=== PATIENT | female | born 1970 | race African-American/Black ===

== ENCOUNTER 2017-03-11 16:22 | Emergency (ER) | payer OTHER ==
[~2017-03-11] VITALS: Ht 167.6 cm; Wt 75.9 kg
[2017-03-11] MEDS ORDERED: METH10TA PO (16:32)
[2017-03-11 17:39] LABS: MUCUS, URINE RFX LARGE (NEGATIVE); SPECIFIC GRAVITY UR AUTO RFX 1.027 (1.002-1.035); SQUAM EPITHELIAL CELL UR AURFX 1 /HPF (0-6)
--- NOTE | 2017-03-11 19:00 | REPUSA ---
CLINICAL HISTORY: Pelvic pain with history of fibroids. TECHNIQUE: Realtime sonographic images were obtained in multiple projections. COMMENTS: The uterus is retroverted measuring 8.2 x 5.4 x 6.8 cm. The endometrial echo pattern is within melanie l limits measuring 7.7 mm. There are numerous fibroids with the largest laterally measuring 2.7 x 2.1 x 2.4 cm. There is free fluid in the left adnexa. The right ovary measures 3.2 x 2.4 x 1.8 cm and the left ovary measures 3.8 x 2.4 x 3.6 cm with a hem orrhagic cyst measuring 2.4 x 2.1 x 2.6 cm. There is no evidence for abnormal vascularity. The bladder measures 2.2 x 1.7 x 5.0 cm. IMPRESSION: 1. Numerous fibroids. 2. Left ovarian hemorrhagic cyst. 3. Left adnexal free fluid. Thank you for your kind referral of this patient. We appreciate the opportunity to participate in thi s patient's care.
[2017-03-11 19:31] VITALS: BP 114/67
== END 2017-03-11 19:49 | disposition home or self-care (01) ==
LOC: M ED 16:22
DX: D25.9 Leiomyoma of uterus, unspecified (principal); N83.202 Unspecified ovarian cyst, left side; Z87.440 Personal history of urinary (tract) infections; Z79.899 Other long term (current) drug therapy; Z88.8 Allergy status to other drugs, medicaments and biological substances

== ENCOUNTER 2017-04-12 09:35 | Emergency (ER) | payer OTHER ==
[2017-04-12 12:43] LABS: BASO % 0.7 % (0.0-1.0); EOS # 0.2 10^3/uL (0.0-0.50); EOS % 3.4 % (0.0-3.0); HEMATOCRIT 40.8 % (36.0-47.0); HEMOGLOBIN 13.9 g/dl (12.0-16.0); IMMATURE GRANULOCYTE % 0.2 % (0-0); LYMPH # 1.9 10^3/uL (1.5-4.5); LYMPH % 34.2 % (24.0-44.0); MEAN CORPUSCULAR HEMOGLOBIN 29.4 pg (27.0-33.0); MEAN CORPUSCULAR HGB CONC 34.1 g/dl (32.0-36.5); MEAN CORPUSCULAR VOLUME 86.3 fl (80.0-96.0); MONO # 0.3 10^3/uL (0.0-0.8); MONO % 4.4 % (0.0-5.0); NEUTROPHILS # 3.2 10^3/uL (1.8-7.7); NEUTROPHILS % 57.1 % (36.0-66.0); PLATELET COUNT, AUTOMATED 325 10^3/uL (150-450); RED BLOOD COUNT 4.73 10^6/uL (4.00-5.40); RED CELL DISTRIBUTION WIDTH 13.1 % (11.5-14.5); WHITE BLOOD COUNT 5.6 10^3/uL (4.0-10.0)
[2017-04-12 12:53] LABS: INR 0.95; PROTHROMBIN TIME 12.8 SECONDS (12.4-14.5)
[2017-04-12 12:54] LABS: PARTIAL THROMBOPLASTIN TIME 29.3 SECONDS (26.8-37.9)
[2017-04-12 13:08] LABS: ANION GAP 6 MEQ/L (8-16); BLOOD UREA NITROGEN 10 MG/DL (7-18); CALCIUM LEVEL 8.7 MG/DL (8.5-10.1); CARBON DIOXIDE LEVEL 25 MEQ/L (21-32); CHLORIDE LEVEL 111 MEQ/L (98-107); CREATININE FOR GFR 0.82 MG/DL (0.55-1.02); GLOMERULAR FILTRATION RATE > 60.0 (>58); GLUCOSE, FASTING 127 MG/DL (70-100); MAGNESIUM LEVEL 2.1 MG/DL (1.8-2.4); POTASSIUM SERUM 4.1 MEQ/L (3.5-5.1); SODIUM LEVEL 142 MEQ/L (136-145)
== END 2017-04-12 13:56 | disposition home or self-care (01) ==
LOC: M ED 09:35
DX: M62.838 Other muscle spasm (principal)
CPT/HCPCS: 93971

== ENCOUNTER → 2017-05-20 | Outpatient (REF) | payer OTHER ==
[2017-05-20 21:33] LABS: APPEARANCE, URINE CLEAR (CLEAR); BACTERIA, URINE AUTO NEGATIVE (NEGATIVE); BILIRUBIN, URINE AUTO NEGATIVE (NEGATIVE); BLOOD, URINE BLOOD NEGATIVE (NEGATIVE); COLOR, URINE YELLOW (YELLOW); GLUCOSE, URINE (UA) AUTO NEGATIVE (NEGATIVE); KETONE, URINE AUTO NEGATIVE (NEGATIVE); LEUKOCYTE ESTERASE, URINE AUTO NEGATIVE (NEGATIVE); MUCUS, URINE SMALL (NEGATIVE); NITRITE, URINE AUTO NEGATIVE (NEGATIVE); PROTEIN, URINE AUTO NEGATIVE (NEGATIVE); RBC, URINE AUTO 1 /HPF (0-3); SPECIFIC GRAVITY URINE AUTO 1.026 (1.002-1.035); SQUAMOUS EPITHELIAL CELL UR AU 1 /HPF (0-6); WBC, URINE AUTO 0 /HPF (0-3)
[2017-05-20 23:33] LABS: CHLAMYDIA DNA AMPLIFICATION NEGATIVE (NEGATIVE); GC DNA AMPLIFICATION NEGATIVE (NEGATIVE)
== END ==
LOC: M LAB REF 09:32
DX: N39.0 Urinary tract infection, site not specified (principal)
CPT/HCPCS: 81001

== ENCOUNTER 2017-12-17 09:39 | Emergency (ER) | payer OTHER ==
[2017-12-17 10:18] LABS: BASO # 0.1 10^3/uL (0.0-0.2); BASO % 0.8 % (0.0-1.0); EOS # 0.1 10^3/uL (0.0-0.50); EOS % 1.9 % (0.0-3.0); HEMATOCRIT 41.7 % (36.0-47.0); HEMOGLOBIN 14.1 g/dl (12.0-15.5); IMMATURE GRANULOCYTE % 0.2 % (0-3.0); LYMPH # 2.3 10^3/uL (1.5-4.5); LYMPH % 36.1 % (24.0-44.0); MEAN CORPUSCULAR HEMOGLOBIN 29.1 pg (27.0-33.0); MEAN CORPUSCULAR HGB CONC 33.8 g/dl (32.0-36.5); MONO # 0.5 10^3/uL (0.0-0.8); MONO % 7.3 % (0.0-5.0); NEUTROPHILS # 3.4 10^3/uL (1.8-7.7); NEUTROPHILS % 53.7 % (36.0-66.0); PLATELET COUNT, AUTOMATED 330 10^3/uL (150-450); RED BLOOD COUNT 4.85 10^6/uL (4.00-5.40); RED CELL DISTRIBUTION WIDTH 13.2 % (11.5-14.5); WHITE BLOOD COUNT 6.3 10^3/uL (4.0-10.0)
[2017-12-17 11:01] LABS: CONTROL LINE HCG INT CTR LINE PRESENT; HCG, SERUM QUALITATIVE NEGATIVE (NEGATIVE)
[2017-12-17 11:02] LABS: INR 0.92; PROTHROMBIN TIME 12.5 SECONDS (12.1-14.4)
[2017-12-17 11:05] LABS: D-DIMER QUANT 296.2 ng/ml (<500)
[2017-12-17 11:30] LABS: ALBUMIN 3.5 GM/DL (3.2-5.2); ALBUMIN/GLOBULIN RATIO 1.09 (1.00-1.93); ALKALINE PHOSPHATASE 78 U/L (45-117); ALT/SGPT 16 U/L (12-78); ANION GAP 10 MEQ/L (8-16); AST/SGOT 10 U/L (7-37); BILIRUBIN,DIRECT 0.2 MG/DL (0.0-0.2); BILIRUBIN,TOTAL 0.5 MG/DL (0.2-1.0); BLOOD UREA NITROGEN 10 MG/DL (7-18); CALCIUM LEVEL 8.4 MG/DL (8.5-10.1); CARBON DIOXIDE LEVEL 22 MEQ/L (21-32); CHLORIDE LEVEL 111 MEQ/L (98-107); CK-MB VALUE MASS < 1.0 NG/ML (<3.6); CPK CREATINE PHOSPHOKINASE 55 U/L (26-192); CREATININE FOR GFR 0.84 MG/DL (0.55-1.30); GLOMERULAR FILTRATION RATE > 60.0 (>58); GLUCOSE, FASTING 113 MG/DL (70-100); LIPASE 140 U/L (73-393); MB/CK RELATIVE INDEX 1.82 (< OR =4); NT-PRO BNP 29 PG/ML (<125); POTASSIUM SERUM 3.7 MEQ/L (3.5-5.1); SODIUM LEVEL 143 MEQ/L (136-145); THYROID STIMULATING HORMONE 0.638 uIU/ML (0.358-3.740); TOTAL PROTEIN 6.7 GM/DL (6.4-8.2); TROPONIN I < 0.02 NG/ML (< 0.10)
[2017-12-17] MEDS: ASPIRIN 81 MG CHEW TABLET PO (11:42)
[2017-12-17 13:43] LABS: TROPONIN I < 0.02 NG/ML (< 0.10)
== END 2017-12-17 14:02 | disposition home or self-care (01) ==
LOC: M ED 09:39
DX: F41.9 Anxiety disorder, unspecified (principal); R07.9 Chest pain, unspecified; R00.1 Bradycardia, unspecified; E03.9 Hypothyroidism, unspecified; Z88.8 Allergy status to other drugs, medicaments and biological substances; Z88.1 Allergy status to other antibiotic agents; Z83.2 Family history of diseases of the blood and blood-forming organs and certain disorders involving the immune mechanism; Z98.890 Other specified postprocedural states; Z79.899 Other long term (current) drug therapy
CPT/HCPCS: 71045

== ENCOUNTER → 2018-05-05 | Outpatient (CLI) | payer OTHER ==
[~2018-05-05] MED LIST: METH10TA PO; NAPR-885 PO
--- NOTE | 2018-05-16 17:09 | REP ---
Digital diagnostic bilateral mammography with CAD and focused right breast sonography: History: Right breast lump times 1 week superior and medial quadrant. Status post bilateral lumpectomy. Comparison bilateral mammography November 04, 2016 is retrieved from [facility]. The patient relates that she has a history of breast carcinoma at age 19. Mammographic findings: There is a needle biopsy marker clip projecting in the right lateral mid breast. This is unchanged from the comparison mammography. A skin marker is affixed to the skin at the site of the palpable lump in the right breast. This projects quite medially and inferiorly on the right. Breast parenchyma is heterogeneously somewhat dense in a pattern which may inhibit the sensitivity of mammography. No new density, architectural distortion, mass lesion or microcalcification is observed on either side. No worrisome skin change is seen. Focal spot compression CC , true MLO and MLO views show no additional abnormality. Sonographic findings: Focused right breast sonography is carried out in the area of palpable lump, fall from 3 o'clock to 5 o'clock. Palpable lump is at 4 o'clock. Somewhat heterogeneous fibroglandular background echotexture is seen. No suspicious sonographic finding. Impression: BIRADS category II benign findings. Marker clip noted on the right. Otherwise negative. This negative report should not dissuade one from biopsy of a palpable lump depending on its clinical characteristics. Clinical follow-up is advised. BIRADS 2: BI-RADS/ACR category 2 mammogram. Benign Findings. This mammogram was interpreted with the aid of an FDA-approved computer-aided detection system. The patient states that she has not had a clinical breast exam in over a year. The patient letter being requested is m2 . Dense. Electronically Signed by Chon Cole MD 05/16/2018 05:44 P
== END ==
LOC: M RAD 14:24
PROVIDERS: ATTEND Internal Medicine
DX: N63.14 Unspecified lump in the right breast, lower inner quadrant (principal); Z85.3 Personal history of malignant neoplasm of breast

== ENCOUNTER 2018-11-28 14:59 | Emergency (ER) | payer OTHER ==
[~2018-11-28] VITALS: Ht 167.6 cm; Wt 86.8 kg
[2018-11-28 15:39] LABS: BASO # 0.1 10^3/uL (0.0-0.2); EOS # 0.2 10^3/uL (0.0-0.5); EOS % 2.9 % (0.0-3.0); HEMATOCRIT 42.2 % (36.0-47.0); HEMOGLOBIN 14.3 g/dl (12.0-15.5); LYMPH % 32.9 % (24.0-44.0); MEAN CORPUSCULAR HEMOGLOBIN 29.5 pg (27.0-33.0); MEAN CORPUSCULAR HGB CONC 33.9 g/dl (32.0-36.5); MEAN CORPUSCULAR VOLUME 87.2 fl (80.0-96.0); MONO # 0.4 10^3/uL (0.0-0.8); MONO % 5.9 % (0.0-5.0); NEUTROPHILS # 3.4 10^3/uL (1.5-8.5); NEUTROPHILS % 57.1 % (36.0-66.0); PLATELET COUNT, AUTOMATED 313 10^3/uL (150-450); RED BLOOD COUNT 4.84 10^6/uL (4.00-5.40); WHITE BLOOD COUNT 5.9 10^3/uL (4.0-10.0)
[2018-11-28 16:03] LABS: BLOOD UREA NITROGEN 9 MG/DL (7-18); CALCIUM LEVEL 8.8 MG/DL (8.5-10.1); CARBON DIOXIDE LEVEL 25 MEQ/L (21-32); CHLORIDE LEVEL 108 MEQ/L (98-107); CREATININE FOR GFR 0.91 MG/DL (0.55-1.30); GLOMERULAR FILTRATION RATE > 60.0 (>58); GLUCOSE, FASTING 97 MG/DL (70-100); POTASSIUM SERUM 4.3 MEQ/L (3.5-5.1); SODIUM LEVEL 140 MEQ/L (136-145)
[2018-11-28] MEDS ORDERED: ONDANSETRON 4MG/2ML VIAL (J2405) IV ONE (16:15)
[2018-11-28] MEDS ORDERED: NS 1,000 ML IV ONE (16:15)
[2018-11-28] MEDS ORDERED: ISOVUE-370 76% 100ML VIAL (Q9967) As Ordered ONE (16:17)
[2018-11-28 16:31] LABS: ALBUMIN 3.6 GM/DL (3.2-5.2); ALT/SGPT 20 U/L (12-78); BILIRUBIN,DIRECT 0.1 MG/DL (0.0-0.2); BILIRUBIN,TOTAL 0.4 MG/DL (0.2-1.0); LIPASE 121 U/L (73-393); TOTAL PROTEIN 7.4 GM/DL (6.4-8.2)
[2018-11-28 17:54] VITALS: BP 123/63
--- NOTE | 2018-11-29 08:31 | REP ---
CT ABDOMEN AND PELVIS WITH IV BUT WITHOUT ORAL CONTRAST: HISTORY: Right lower quadrant pain. CT CONTRAST DOSE: 100 mL of intravenous Isovue 370 is administered. No comparison study. CT FINDINGS: Preliminary digital teacher dancing radiograph is unremarkable. The lung bases are clear. There is evidence of mild diffuse fatty infiltration of the liver. There is a 1 cm cyst centrally in the right lobe of the liver. No abnormalities noted in the gallbladder or pancreas. The spleen is homogeneous in texture, normal in size. No adrenal lesion is seen on either side. The kidneys enhance symmetrically and are morphologically intact. There is a retroaortic left renal vein noted incidentally. Normal appendix is seen in the right lower quadrant. Small and large intestinal bowel loops are normal in the abdomen and pelvis. There is multinodular enlargement of the uterus with multiple low density mass lesions. The uterus is retroverted and retroflexed. Its dimensions are 8.4 x 10.8 x 6.1 cm overall. Findings are compatible with multiple uterine myomas. Small cystic areas are seen in the ovaries bilaterally. No free fluid is noted. Urinary bladder is unremarkable. No abdominal wall defect is seen. IMPRESSION: Retroverted retroflexed enlarged leiomyomatous uterus. Normal appendix. Small cyst right lobe with fatty infiltration of the liver. Otherwise negative CT abdomen and pelvis. Electronically Signed by Chon Cole MD 11/29/2018 09:09 A
== END 2018-11-28 17:53 | disposition home or self-care (01) ==
LOC: M ED 14:59
DX: D25.9 Leiomyoma of uterus, unspecified (principal); E03.9 Hypothyroidism, unspecified; Z79.899 Other long term (current) drug therapy; Z88.8 Allergy status to other drugs, medicaments and biological substances
CPT/HCPCS: 36415; 74177; 80048; 80076; 81001; 83690; 84702; 85025; 86850; 86900; 86901; 96374; 99284; J2405; Q9967

== ENCOUNTER 2020-07-23 12:24 | Emergency (ER) | payer OTHER ==
[~2020-07-23] VITALS: Ht 170.2 cm; Wt 86.5 kg
[2020-07-23 14:01] LABS: BASO % 0.6 % (0.0-1.0); EOS # 0.1 10^3/uL (0.0-0.5); EOS % 1.7 % (0.0-3.0); HEMATOCRIT 45.7 % (36.0-47.0); HEMOGLOBIN 14.9 g/dl (12.0-15.5); LYMPH # 1.9 10^3/uL (1.5-5.0); LYMPH % 35.9 % (24.0-44.0); MEAN CORPUSCULAR HEMOGLOBIN 28.1 pg (27.0-33.0); MEAN CORPUSCULAR HGB CONC 32.6 g/dl (32.0-36.5); MEAN CORPUSCULAR VOLUME 86.2 fl (80.0-96.0); MONO # 0.3 10^3/uL (0.0-0.8); MONO % 5.4 % (2.0-8.0); NEUTROPHILS % 56.2 % (36.0-66.0); PLATELET COUNT, AUTOMATED 302 10^3/uL (150-450); WHITE BLOOD COUNT 5.4 10^3/uL (4.0-10.0)
[2020-07-23 14:16] LABS: ALT/SGPT 15 U/L (12-78); BILIRUBIN,DIRECT 0.1 MG/DL (0.0-0.2); BILIRUBIN,TOTAL 0.5 MG/DL (0.2-1.0); BLOOD UREA NITROGEN 7 MG/DL (7-18); CALCIUM LEVEL 9.1 MG/DL (8.5-10.1); CARBON DIOXIDE LEVEL 26 MEQ/L (21-32); CHLORIDE LEVEL 107 MEQ/L (98-107); CREATININE FOR GFR 0.84 MG/DL (0.55-1.30); GLOMERULAR FILTRATION RATE > 60.0 (>58); GLUCOSE, FASTING 80 MG/DL (70-100); LIPASE 73 U/L (73-393); POTASSIUM SERUM 4.3 MEQ/L (3.5-5.1); SODIUM LEVEL 138 MEQ/L (136-145); TOTAL PROTEIN 7.7 GM/DL (6.4-8.2)
--- NOTE | 2020-07-23 15:21 | REP ---
INDICATION: upper abd pain, constipation, nausea. COMPARISON: None. TECHNIQUE: Two supine views of the abdomen and pelvis. FINDINGS: Bowel gas pattern is nonspecific and without obstruction or perforation. Mild fecal stasis cannot be excluded. No again a megaly. No abnormal calcifications. Phleboliths noted in the pelvis. Skeletal structures intact. IMPRESSION: Essentially normal nonspecific abdominal radiographs. <Electronically signed by Neel Campos > 07/23/20 [id number]
[2020-07-23] MEDS ORDERED: MAGNESIUM CITRATE 300 ML BTL PO ONE (15:45)
[2020-07-23] MEDS ORDERED: MIRA3350 PO (15:46)
[2020-07-23] MEDS ORDERED: COLA100C5 PO (15:46)
[2020-07-23 15:54] VITALS: BP 112/68
== END 2020-07-23 16:04 | disposition home or self-care (01) ==
LOC: M ED 12:24
DX: K59.00 Constipation, unspecified (principal); E03.9 Hypothyroidism, unspecified; D57.3 Sickle-cell trait; Z79.899 Other long term (current) drug therapy